=== PATIENT | female | born 1970 | race African-American/Black ===

== ENCOUNTER 2020-11-06 17:39 | Emergency (ER) | payer OTHER ==
[~2020-11-06] VITALS: Ht 170.2 cm; Wt 86.2 kg
[~2020-11-06 17:39] MED LIST: AMLODIPINE BESYL5 M1 PO; APAP500 PO; BYSTOLIC10 MG PO; MAXZIDE-25 MG1 EACH PO; METFORMIN HCL500 MG PO; OMEPRAZOLE 20 M20 MG PO; PRAVACHOL40 MG PO
[2020-11-06] MEDS ORDERED: GABAPENTIN 100100 MG PO (18:07)
[2020-11-06] MEDS ORDERED: BENAZEPRIL HCL20 MG PO (18:07)
[2020-11-06] MEDS ORDERED: ROSUVASTATIN CA20 MG PO (18:07)
[2020-11-06] MEDS ORDERED: CYCLOBENZAPRINE5 MG PO (20:38)
[2020-11-06] MEDS ORDERED: ULTRAM 50MG TAB50 MG PO (20:38)
[2020-11-06 20:50] VITALS: BP 146/85
== END 2020-11-06 21:00 | disposition home or self-care (01) ==
LOC: ER 17:39
DX: S93.491A Sprain of other ligament of right ankle, initial encounter (principal); S16.1XXA Strain of muscle, fascia and tendon at neck level, initial encounter; I10 Essential (primary) hypertension; E11.9 Type 2 diabetes mellitus without complications; E78.00 Pure hypercholesterolemia, unspecified; Z90.710 Acquired absence of both cervix and uterus; Z88.0 Allergy status to penicillin; Z88.8 Allergy status to other drugs, medicaments and biological substances; V49.49XA Driver injured in collision with other motor vehicles in traffic accident, initial encounter; Y93.I9 Activity, other involving external motion; Y92.89 Other specified places as the place of occurrence of the external cause; Y99.8 Other external cause status